=== PATIENT | female | born 1960 | race Caucasian/White ===

== ENCOUNTER → 2016-08-04 | Day surgery (SDC) | payer OTHER ==
[~2016-08-04] MED LIST: AVAPRO300 M1 PO; BENICAR PO; CALTRATE 600+D PO; CALTRATE GUMMY1 EACH; CHLORTHALIDONE25 MG PO; FLONASE ALLERG9.9 ML; HYDROCODON-ACE1 EAC5 PO; LOVENOX40 MG/0.4 INJ; MELOXICAM15 MG PO; MUCINEX PO; OMEPRAZOLE40 M1 PO; PERCOCET 10/31 UDTA1 PO; SINGULAIR PO; SYNTHROID125 PO; VITAMIN C500 M2 PO; VITAMIN D35000 UNIT PO; ZYRTEC10 M1 PO
--- NOTE | ~2016-08-04 | OR ---
Unit #: [id number] #: [id number] Patient: KARLA PHILIP [id number] [address] [address] [id number] MR#: [id number] NAME: KARLA PHILIP ROOM: Date of Procedure: 08/04/2016 Admission Date: 08/04/2016 Surgeon: Torito Comer M.D. : 1960 Attending Physician: Torito Comer M.D. Referring Physician: Torito Comer M.D. Primary Care Physician: Jarrett Presley M.D. OPERATIVE REPORT PREOPERATIVE DIAGNOSIS Arthrofibrosis, status post left total knee. POSTOPERATIVE DIAGNOSIS Arthrofibrosis, status post left total knee. PROCEDURE PERFORMED Manipulation, left knee. ANESTHESIA General. ESTIMATED BLOOD LOSS Zero. COMPLICATIONS None. DESCRIPTION OF PROCEDURE The patient was brought to the operating room, given a general anesthetic. Her range of motion prior to manipulation was 0 to about 80 to 85. We were able to manipulate her knee with palpable and audible release of adhesions with further flexion to about 105 to 110. She was stable. After this was done, her general anesthetic was reversed and she was transferred to the recovery room. Dictated by... Chavez Montez/padmini TD: 08/04/2016 16:02 JOB #: [id number] Unit #: [id number] #: [id number] Patient: KARLA PHILIP OPERATIVE REPORT X Torito Comer MD X PROCEDURE OPERATIVE NOTE
== END | disposition home or self-care (01) ==
LOC: CSUR 08:45
DX: M24.662 Ankylosis, left knee (principal); Z96.652 Presence of left artificial knee joint; K21.9 Gastro-esophageal reflux disease without esophagitis; Z85.850 Personal history of malignant neoplasm of thyroid; Z86.73 Personal history of transient ischemic attack (TIA), and cerebral infarction without residual deficits; I10 Essential (primary) hypertension; E55.9 Vitamin D deficiency, unspecified; E03.9 Hypothyroidism, unspecified; D35.00 Benign neoplasm of unspecified adrenal gland; Z88.1 Allergy status to other antibiotic agents; Z88.5 Allergy status to narcotic agent; Z88.2 Allergy status to sulfonamides
CPT/HCPCS: J1885; J2250; J2765; J3010